=== PATIENT | female | born 1950 | race Caucasian/White ===

== ENCOUNTER 2016-09-15 14:07 | Emergency (ER) | payer OTHER ==
[2016-09-15 14:17] VITALS: RESP 16
[2016-09-15] MEDS ORDERED: FLUORESCEIN SODIUM 1 MG STRIP OP ONE (14:43)
[2016-09-15] MEDS ORDERED: PROPARACAINE 0.5% 15 ML OPHT DROP ONE (14:44)
--- NOTE | 2016-09-15 15:04 | EDPHY ---
H & P Time Seen by Provider: 09/15/16 14:48 HPI/ROS: CHIEF COMPLAINT: Left eye pain HISTORY OF PRESENT ILLNESS: This is a 66-year-old female presenting to the emergency department complaining left eye pain onset this morning. Patient states she was taking off her eyelashes when eye lash and piece of glue landed in her left eye. Patient states she did rubber eye after the incident and since then has been irritated with the feeling of something is in her eye. Denies any blurred vision or headache REVIEW OF SYSTEMS: Constitutional: No fever, no chills. Eyes: No discharge. No blurred vision. Left eye irritation ENT: No sore throat. Cardiovascular: No chest pain, no palpitations. Respiratory: No cough, no shortness of breath. Gastrointestinal: No abdominal pain, no vomiting. Musculoskeletal: No back pain. Skin: No rashes. Neurological: No headache. Smoking Status: Never smoked Physical Exam: General Appearance: Alert and no distress. Eyes: Pupils equal and round left conjunctival redness Respiratory: Chest is nontender, lungs are clear to auscultation. Cardiac: regular rate and rhythm Musculoskeletal: Neck is supple and nontender. Extremities have full range of motion and are nontender. Skin: No rashes or lesions. Constitutional: Initial Vital Signs Temperature (C) 37.2 C 09/15/16 14:14 Heart Rate 67 09/15/16 14:14 Respiratory Rate 16 09/15/16 14:14 Blood Pressure 125/78 H 09/15/16 14:14 O2 Sat (%) 94 09/15/16 14:14 O2 Delivery Mode Room Air Allergies/Adverse Reactions: No Known Allergies Allergy (Unverified 09/15/16 14:17) Home Medications: Medication Instructions Recorded Erythromycin 0.5% 3.5 gm OP Q4HRS WHILE AWAKE #2 09/15/16 opht.oint Medical Decision Making Procedures: Procedure: Fluorescein/slit lamp exam : left eye Anesthesia: Topical. After verbal consent from the patient. There was a corneal abrasion horizontal noted to left eye. No foreign body noted, upper eyelid flipped no foreign body seen. There were no complications and the patient tolerated the procedure well. The procedure was performed by myself. ED Course/Re-evaluation: Discussed ED plan of care: Fluorescein and slit lamp exam left eye 1505: Corneal abrasion noted to left eye, no foreign body noted, upper eyelid flipped no foreign body seen and upper lid. Differential Diagnosis: Other differential diagnosis considered but not limited to corneal laceration, corneal foreign body and bacteria conjunctivitis Departure - Departure Disposition: Home, Routine, Self-Care Clinical Impression: Corneal abrasion, left Qualifiers: Encounter type: initial encounter Qualified Code(s): S05.02XA - Injury of conjunctiva and corneal abrasion without foreign body, left eye, initial encounter Condition: Good Instructions: Corneal Abrasion (ED) Additional Instructions: Discussed discharge instruction 1. Use medication as prescribed. I would also recommend wearing sunglasses because dry will be sensitive to the light. Decrease any visual stimulation 2. Do not rub dry. I would also recommend not wearing your eye lashes for the next 7-10 days to prevent any further incident 3. He can also take ibuprofen 600 mg every 6-8 hours as needed for pain, and/ or Tylenol 4. Recommend following up with Ophthalmology in 7-10 days Referrals: Dusty Mast MD [Primary Care Provider] - As per Instructions Prescriptions: Erythromycin 0.5% 3.5 gm OP Q4HRS WHILE AWAKE #2 opht.oint
[2016-09-15 15:15] VITALS: BP 119/60; PULSE 71; TEMP 98.6; O2SAT 98
== END 2016-09-15 15:23 | disposition home or self-care (01) ==
DX: S05.02XA Injury of conjunctiva and corneal abrasion without foreign body, left eye, initial encounter (principal); X58.XXXA Exposure to other specified factors, initial encounter

== ENCOUNTER 2016-12-10 21:12 | Emergency (ER) | payer OTHER ==
[2016-12-10 21:34] VITALS: RESP 16; TEMP 98.4
--- NOTE | 2016-12-10 22:28 | EDPHY ---
H & P Stated Complaint: Pt fell ([facility] Fall) striking her head and side of face. No LOC. HPI/ROS: HPI CHIEF COMPLAINT: Mechanical trip and fall right posterior rib pain, left facial pain HISTORY OF PRESENT ILLNESS: This patient is 66-year-old female otherwise healthy does not take any daily medications and is not on any blood thinners, she presents to the emergency room after she took a mechanical trip and fall out of the back of a [employer] truck. She states she fell approximately 2 feet she landed on the ground. She mainly impacted her left side. She pain of left facial pain, and left-sided headache, additionally she complains right posterior rib pain. Does have some abrasions on her left lower leg but denies any significant pain. Tetanus shot is up-to-date. Denies LOC. Denies neck pain, denies chest pain or shortness of breath. Denies abdominal pain. Past Medical History: No medical history except for breast cancer Past Surgical History: Bilateral mastectomy Social History: Denies daily use drugs alcohol tobacco products Family History: Noncontributory ROS REVIEW OF SYSTEMS: A comprehensive 10 point review of systems is otherwise negative aside from elements mentioned in the history of present illness. Exam Constitutional appears well nontoxic triage nursing summary reviewed, vital signs reviewed, awake/alert. Eyes normal conjunctivae and sclera, EOMI, PERRLA. HENT Head/Neck: Atraumatic head and neck exam however patient complains of left -sided forehead pain. No hematoma. No scalp laceration. No midline cervical spine pain no step-offs. normal inspection, atraumatic, moist mucus membranes, no epistaxis, neck supple/ no meningismus, no raccoon eyes. Respiratory clear to auscultation bilaterally, normal breath sounds, no respiratory distress, no wheezing. Cardiovascular rate normal, regular rhythm, no murmur, no edema, distal pulses normal. Gastrointestinal soft, non-tender, no rebound, no guarding, normal bowel sounds, no distension, no pulsatile mass. Genitourinary no CVA tenderness. Musculoskeletal no midline vertebral tenderness, full range of motion, no calf swelling, no tenderness of extremities, no meningismus, good pulses, neurovascularly intact. Skin abrasion left lower extremity anterior tibia region, ankle region, no laceration, pink, warm, & dry, no rash Neurologic awake, alert and oriented x 3, AAOx3, moves all 4 extremities equally, motor intact, sensory intact, CN II-XII intact, normal cerebellar, normal vision, normal speech. Psychiatric normal mood/affect. Heme/Lymph/Immune no lymphadenopathy. Differential Diagnosis: Includes but is not limited to in a particular order closed-head injury, intracranial bleed, skull fracture, concussion, subdural, epidural, traumatic subarachnoid, rib fractures, pneumothorax Medical Decision Making: Plan for this patient CT head without contrast for trauma, chest x-ray with rib series right-sided for trauma. [place] for pain control. Re-evaluate. Re-evaluation: CT scan of the head without IV contrast. The results of the study are negative for acute intracranial abnormality The study was read by Dr. Arzola I viewed the images myself on the PACS system. X-ray and CT scan reviewed. No acute rib fracture or pneumothorax. CT head does not show anything acute. Blood work is reviewed is normal. She feels better [place]. She will be discharged from the emergency room if she has no significant intracranial trauma. It is possible she has close head injury concussion. Source: Patient - Personal History Current Tetanus/Diphtheria Vaccine: Unsure Current Tetanus Diphtheria and Acellular Pertussis (TDAP): Unsure - Medical/Surgical History Hx Asthma: No Hx Chronic Respiratory Disease: No Hx Diabetes: No Hx Cardiac Disease: No Hx Renal Disease: No Hx Cirrhosis: No Hx Alcoholism: No Hx HIV/AIDS: No Hx Splenectomy or Spleen Trauma: No Other PMH: PMH:breast CA, polio. PSH:none - Social History Smoking Status: Never smoked Constitutional: Initial Vital Signs Temperature (C) 36.9 C 12/10/16 21:29 Heart Rate 65 12/10/16 21:29 Respiratory Rate 16 12/10/16 21:29 Blood Pressure 131/54 H 12/10/16 21:29 O2 Sat (%) 94 12/10/16 21:29 O2 Delivery Mode Room Air Allergies/Adverse Reactions: No Known Allergies Allergy (Verified 12/10/16 21:34) Medical Decision Making - Diagnostics Imaging Results: Imaging Impressions Head CT 12/10/16 22:33 Impression: Normal. Results called and discussed with Alberto Monet MD at 12/10/2016 23:05. Ribs w/Chest X-Ray 12/10/16 22:33 Impression: 1. No evidence for acute cardiopulmonary abnormality. 2. No evidence for right rib fracture. - Data Points Laboratory Results: Laboratory Results 12/10/16 23:00 12/10/16 23:00 12/10/16 12/10/16 23:00 23:00 WBC 7.93 10^3/uL 10^3/uL (3.80-9.50) RBC 4.60 10^6/uL 10^6/uL (4.18-5.33) Hgb 14.2 g/dL g/dL (12.6-16.3) Hct 42.6 % % (38.0-47.0) MCV 92.6 fL fL (81.5-99.8) MCH 30.9 pg pg (27.9-34.1) MCHC 33.3 g/dL g/dL (32.4-36.7) RDW 12.6 % % (11.5-15.2) Plt Count 253 10^3/uL 10^3/uL (150-400) MPV 9.2 fL fL (8.7-11.7) Neut % (Auto) 65.1 % % (39.3-74.2) Lymph % (Auto) 25.2 % % (15.0-45.0) [place] % (Auto) 7.2 % % (4.5-13.0) Eos % (Auto) 1.5 % % (0.6-7.6) Baso % (Auto) 0.9 % % (0.3-1.7) Nucleat RBC Rel Count 0.0 % % (0.0-0.2) Absolute Neuts (auto) 5.16 10^3/uL 10^3/uL (1.70-6.50) Absolute Lymphs (auto) 2.00 10^3/uL 10^3/uL (1.00-3.00) Absolute Monos (auto) 0.57 10^3/uL 10^3/uL (0.30-0.80) Absolute Eos (auto) 0.12 10^3/uL 10^3/uL (0.03-0.40) Absolute Basos (auto) 0.07 10^3/uL 10^3/uL (0.02-0.10) Absolute Nucleated RBC 0.00 10^3/uL 10^3/uL (0-0.01) Immature Gran % 0.1 % % (0.0-1.1) Immature Gran # 0.01 10^3/uL 10^3/uL (0.00-0.10) Sodium 139 mEq/L mEq/L (134-144) Potassium 4.5 mEq/L mEq/L (3.5-5.2) Chloride 102 mEq/L mEq/L (97-110) Carbon Dioxide 27 mEq/l mEq/l (22-31) Anion Gap 10 mEq/L mEq/L (8-16) BUN 27 mg/dL H mg/dL (7-23) Creatinine 0.8 mg/dL mg/dL (0.6-1.0) Estimated GFR > 60 Glucose 110 mg/dL H mg/dL (70-100) Calcium 9.8 mg/dL mg/dL (8.5-10.4) Medications Given: Discontinued Medications Hydrocodone Bitart/Acetaminophen ([place] 5/325) 1 tab PO EDNOW ONE Stop: 12/10/16 22:37 Last Admin: 12/10/16 23:08 Dose: 1 tab Departure - Departure Disposition: Home, Routine, Self-Care Clinical Impression: Head injury Qualifiers: Encounter type: initial encounter Qualified Code(s): S09.90XA - Unspecified injury of head, initial encounter Concussion Qualifiers: Encounter type: initial encounter Loss of consciousness presence/duration: without LOC Qualified Code(s): S06.0X0A - Concussion without loss of consciousness, initial encounter Condition: Good Instructions: Concussion (ED), Head Injury (ED) Additional Instructions: 1. Return emergency room if you have any worsening symptoms questions or concerns. Referrals: Dusty Mast MD [Primary Care Provider] - As per Instructions
[2016-12-10] MEDS ORDERED: HYDROCODONE/APAP 5/325 TAB PO ONE (22:36)
[2016-12-10 23:13] LABS: % IMMATURE GRANULYOCYTES 0.1 % (0.0-1.1); ABSOLUTE IMMATURE GRANULOCYTES 0.01 10^3/uL (0.00-0.10); ADD DIFF? NO; ADD MORPH? NO; ADD SCAN? NO; ATYPICAL LYMPHOCYTE FLAG 10 (0-99); FRAGMENT RBC FLAG 0 (0-99); HEMATOCRIT 42.6 % (38.0-47.0); HEMOGLOBIN 14.2 g/dL (12.6-16.3); LEFT SHIFT FLG 0 (0-99); LIPEMIA HEMOLYSIS FLAG 80 (0-99); MEAN CELL HEMOGLOBIN 30.9 pg (27.9-34.1); MEAN CELL HEMOGLOBIN CONCENTR. 33.3 g/dL (32.4-36.7); MEAN CELL VOLUME 92.6 fL (81.5-99.8); MEAN PLATELET VOLUME 9.2 fL (8.7-11.7); PLATELET CLUMPS FLAG 40 (0-99); PLATELET COUNT 253 10^3/uL (150-400); RED CELL DISTRIBUTION WIDTH 12.6 % (11.5-15.2)
[2016-12-10 23:25] LABS: ANION GAP 10 mEq/L (8-16); CALCIUM 9.8 mg/dL (8.5-10.4); CARBON DIOXIDE 27 mEq/l (22-31); CHLORIDE 102 mEq/L (97-110); CREATININE 0.8 mg/dL (0.6-1.0); GLOMERULAR FILTRATION RATE > 60; GLUCOSE 110 mg/dL (70-100); POTASSIUM 4.5 mEq/L (3.5-5.2); SODIUM 139 mEq/L (134-144)
[2016-12-10 23:51] VITALS: BP 135/77; PULSE 70; O2SAT 96
== END 2016-12-10 23:50 | disposition home or self-care (01) ==
DX: S06.0X0A Concussion without loss of consciousness, initial encounter (principal); Z85.3 Personal history of malignant neoplasm of breast; W01.0XXA Fall on same level from slipping, tripping and stumbling without subsequent striking against object, initial encounter

== ENCOUNTER → 2018-04-24 | Outpatient (CLI) | payer OTHER | LOC: FIMAGING 14:47 | PROVIDERS: ATTEND Physician Assistant | DX: R22.2 Localized swelling, mass and lump, trunk (principal); Z90.13 Acquired absence of bilateral breasts and nipples; Z85.3 Personal history of malignant neoplasm of breast ==

== ENCOUNTER → 2018-07-09 | Outpatient (CLI) | payer OTHER ==
[~2018-07-09] MED LIST: BUPIVACAINE 0.5% 30 ML SDV ONE; LIDOCAINE 1% 300 MG/30 ML SDV ONE
== END ==
LOC: FIMAGING 07:22
PROVIDERS: ATTEND Physician Assistant
PROC: 0HBT3ZX Excision of Right Breast, Percutaneous Approach, Diagnostic (ICD-10-PCS; principal; 2018-07-09)
DX: N60.01 Solitary cyst of right breast (principal)

== ENCOUNTER 2018-08-08 05:48 | Observation (INO) | payer OTHER ==
[2018-08-08] MEDS ORDERED: ceFAZolin 2 GM/DEXTROSE 100 ML IV ONE (06:03)
[2018-08-08] MEDS ORDERED: LIDOCAINE 1% 2 ML INJ ONE (06:35)
[2018-08-08] MEDS ORDERED: LR 1,000 ML IV ONE (06:46)
[2018-08-08] MEDS ORDERED: LIDOCAINE 1% 2 ML INJ ID PRN (06:46)
[2018-08-08] MEDS ORDERED: LIDOCAINE 1% 300 MG/30 ML SDV ONE (06:50)
[2018-08-08] MEDS ORDERED: NA BICARBONATE 50 MEQ/50 ML VIAL ONE (06:50)
[2018-08-08] MEDS ORDERED: BUPIVACAINE 0.5% 30 ML SDV ONE (06:50)
[2018-08-08] MEDS ORDERED: THROMBIN (BOVINE) 5,000 UNIT VIAL TP ONE (06:50)
[2018-08-08] MEDS ORDERED: MIDAZOLAM 2 MG/2 ML VIAL IVP ONE (07:02)
--- NOTE | 2018-08-08 07:03 | PDANEPAE ---
ANE History of Present Illness excisional breast biopsy ANE Past Medical History - Cardiovascular History Hx Hypertension: No Hx Arrhythmias: No Hx Chest Pain: No Hx Coronary Artery / Peripheral Vascular Disease: No Hx CHF / Valvular Disease: No Hx Palpitations: No - Pulmonary History Hx COPD: No Hx Asthma/Reactive Airway Disease: No Hx Recent Upper Respiratory Infection: No Hx Oxygen in Use at Home: No Hx Sleep Apnea: No Sleep Apnea Screening Result - Last Documented: Negative - Neurologic History Hx Cerebrovascular Accident: No Hx Seizures: No Hx Dementia: No Neurologic History Comment: polio as a child - Endocrine History Hx Diabetes: No - Renal History Hx Renal Disorders: No - Liver History Hx Hepatic Disorders: No - Neurological & Psychiatric Hx Hx Neurological and Psychiatric Disorders: Yes Neurological / Psychiatric History Comment: anxiety - Cancer History Hx Cancer: Yes Cancer History Comment: breast ca - Congenital Disorder History Hx Congenital Disorders: No - GI History Hx Gastrointestinal Disorders: No Gastrointestinal History Comment: polyp removed - Other Health History Other Health History: neg - Chronic Pain History Chronic Pain: Yes - Surgical History Prior Surgeries: roger mastectomy. colonoscopy ANE Review of Systems Review of Systems: - Exercise capacity METS (RN): 5 METS ANE Patient History - Allergies Allergies/Adverse Reactions: acetaminophen [From Percocet] Allergy (Verified 08/08/18 06:59) hallucinatory oxycodone [From Percocet] Allergy (Verified 08/08/18 06:59) hallucinatory - Home Medications Home medications: home medication list seen and reviewed Home Medications: Herbals/Supplements -Info Only 08/04/18 [Last Taken Unknown] Lorazepam 08/04/18 [Last Taken Unknown] - NPO status NPO Since - Liquids (Date): 08/07/18 NPO Since - Liquids (Time): 19:00 NPO Since - Solids (Date): 08/07/18 NPO Since - Solids (Time): 19:00 - Anes Hx Anes Hx: no prior problems - Smoking Hx Smoking Status: Never smoked - Family Anes Hx Family Hx Anesthesia Complications: neg ANE Labs/Vital Signs - Vital Signs Blood Pressure: 124/72 Heart Rate: 54 Respiratory Rate: 16 O2 Sat (%): 97 Height: 180.34 cm Weight: 66.224 kg ANE Physical Exam - Airway Neck exam: FROM Mallampati Score: Class 1 Mouth exam: normal dental/mouth exam - Pulmonary Pulmonary: no respiratory distress - Cardiovascular Cardiovascular: regular rate and rhythym - ASA Status ASA Status: II ANE Anesthesia Plan Anesthesia Plan: GA with mask
[2018-08-08] MEDS ORDERED: MIDAZOLAM 2 MG/2 ML VIAL ONE (07:05)
--- NOTE | 2018-08-08 07:05 | PDHPUP ---
History & Physical Update H&P update statement: This history and physical update is based on an assessment of the patient which was completed after admission or registration (within 24 hours), but prior to the surgery/procedure. H&P update: H&P reviewed & patient examined, no change in patient's condition since H&P completed
[2018-08-08] MEDS ORDERED: PROPOFOL/EMULSION 500 MG/50 ML BOTTLE IV ONE (07:08)
[2018-08-08] MEDS ORDERED: fentaNYL 100 MCG/2 ML INJ ONE ×2 (07:08→08:22)
[2018-08-08] MEDS ORDERED: LIDOCAINE 2% 2 ML INJ ONE (07:13)
[2018-08-08] MEDS ORDERED: PROMETHAZINE HCL 25 MG/ML INJ IVP PRN (07:37)
[2018-08-08] MEDS ORDERED: NALOXONE HCL 0.4 MG/ML INJ IVP PRN ×2 (07:37→09:04)
[2018-08-08] MEDS ORDERED: ONDANSETRON 4 MG/2 ML VIAL IVP PRN (07:37)
[2018-08-08] MEDS ORDERED: HYDROCODONE/APAP 5/325 TAB PO PRN (07:37)
[2018-08-08] MEDS ORDERED: DIAZEPAM 10 MG/2 ML SYR IVP PRN (07:37)
[2018-08-08] MEDS ORDERED: LR 500 ML IV PRN (07:37)
--- NOTE | 2018-08-08 07:37 | POSTANESTH ---
Post Anesthetic Evaluation Cardiovascular Status: Normal, Stable Respiratory Status: Normal, Stable Level of Consciousness/Mental Status: Can Participate in Eval, Mildly Sleepy, Arousable Pain Control: Adequate, Prn Tx Ordered Nausea/Vomiting Control: Adequate, Prn Tx Ordered Complications Possibly Related to Anesthesia: None Noted
[2018-08-08] MEDS ORDERED: IBUPROFEN 200 MG TAB PO PRN (08:02)
[2018-08-08] MEDS ORDERED: HYDROmorphONE/DILAUDID 1 MG/ML INJ IVP PRN (08:03)
[2018-08-08] MEDS ORDERED: traMADol 50 MG TAB PO PRN (08:03)
--- NOTE | 2018-08-08 08:03 | POSTOPPROG ---
Post Op Note Date of Operation: 08/08/18 Surgeon: Demetrio Garcia Anesthesiologist: nj Anesthesia: IV Sedation Pre-op Diagnosis: rt breast mass Post-op Diagnosis: sebaceous cyst Indication: pain Procedure: excisional right partial mastectomy Findings: 4 cm sebaceous cyst upper lateral rt breast Inf/Abcess present in the surg proc area at time of surgery?: Yes Depth: Deep Incisional (Fascial) EBL: Minimal Complications: 0 Bowel Protocol: N/A Clean Closure Performed: N/A Drains: Jacob Markham Specimen(s): mass
[2018-08-08] MEDS ORDERED: ONDANSETRON DISINTEGRATING 4 MG TAB PO PRN (08:04)
[2018-08-08] MEDS: fentaNYL 100 MCG/2 ML INJ IVP PRN ×2 (08:26→08:34)
[2018-08-08] MEDS ORDERED: HYDROmorphONE/DILAUDID 1 MG/ML INJ ONE ×2 (08:43→08:46)
[2018-08-08] MEDS: HYDROmorphONE/DILAUDID 1 MG/ML INJ IVP PRN ×2 (08:46→09:03)
--- NOTE | 2018-08-08 10:18 | POSTOPPROG ---
Post Op Note Date of Operation: 08/08/18 Surgeon: Demetrio Garcia Mortgage Collector: Usama Anesthesiologist: Stephan Anesthesia: IV Sedation Pre-op Diagnosis: R breast mass Post-op Diagnosis: R breast sebaceous cyst Indication: same Procedure: R breast sebaceous cyst excision Findings: 3x3cm cyst Inf/Abcess present in the surg proc area at time of surgery?: No Depth: Superfical (Skin SQ) EBL: Minimal Bowel Protocol: N/A Clean Closure Performed: N/A Drains: Jacob Markham Specimen(s): Right breast mass- permanent
[2018-08-08] MEDS ORDERED: LORazepam 1 MG TAB PO PRN (11:11)
[2018-08-08] MEDS: ESCITALOPRAM OXALATE 10 MG TAB PO SCH (11:45)
[2018-08-08] MEDS: LORazepam 1 MG TAB PO SCH (11:46)
[2018-08-09] MEDS: LORazepam 1 MG TAB PO SCH (05:32)
[2018-08-09] MEDS: ESCITALOPRAM OXALATE 10 MG TAB PO SCH (05:32)
--- NOTE | 2018-08-09 10:19 | ASMTCMCOM ---
CM Note CM Note Notes: Reviewed chart, pt admitted for scheduled surgery for a R breast mass, does not appear to be cancerous. No therapies ordered. Pt lives alone and is retired, anticipate she will dc home when medically stable. CM available for any changes. DC Plan: Indepnedent Date Signed: 08/09/2018 10:18 AM Electronically Signed By:Anabel Bennett RN
[2018-08-09 11:27] VITALS: BP 108/62
--- NOTE | 2018-08-09 13:04 | SOAPPROG ---
SOAP Progress Note Assessment/Plan: Assessment: DOING WELL/COMFORTABLE/AFEBRILE/MINIMAL DRAINAGE/WOUND OKAY Plan: HOME TODAY 08/09/18 13:04 Objective: Vital Signs Temp Pulse Resp BP Pulse Ox 36.8 C 56 L 16 108/62 92 08/09/18 11:25 08/09/18 11:25 08/09/18 11:25 08/09/18 11:25 08/09/18 11:25 08/08/18 08/09/18 08/10/18 05:59 05:59 05:59 Intake Total 1530 Output Total 955 Balance 575 ICD10 Worksheet Patient Problems: Problems Problem Status Onset Breast mass, right Acute - ICD10 Problem Qualifiers (1) Breast mass, right
--- NOTE | 2018-08-11 03:54 | GOP ---
[f rep st] OPERATIVE REPORT DATE OF OPERATION: 08/08/2018 SURGEON: Dmeetrio Garcia MD PREOPERATIVE DIAGNOSIS: Right breast mass. POSTOPERATIVE DIAGNOSIS: Right breast sebaceous cyst. PROCEDURE PERFORMED: Ultrasound localization of right breast, partial mastectomy. FINDINGS: 5 CM SEBACEOUS CYST DESCRIPTION OF PROCEDURE: The patient was taken to the operating room where she received a satisfactory general laryngeal mask anesthesia. She was placed in the supine position with the right arm outstretched on an arm board. Using ultrasound, the mass was clearly identified. A curvilinear incision was made over the mass. Dissection extended down through subcutaneous tissue and down to the palpable mass. This was dissected free from surrounding subcutaneous tissue off the pectoral fascia and from surrounding breast tissue which was actually TRAM flap tissue. Hemostasis was carefully obtained. The mass was removed. It appeared to be a sebaceous cyst. The wound was irrigated and flushed with some Betadine and then breast tissue was approximated with 3-0 Vicryl as was the subcu, and the skin with a 4-0 Monocryl subcuticular stitch. She tolerated the procedure well. There were no complications. She was taken to the recovery room in good condition. /[id number]/MODL MTDD
== END 2018-08-09 13:41 | disposition home or self-care (01) ==
LOC: FSGY 05:48 → F3E 08:01 → F1N 09:23
PROVIDERS: ADMIT Nurse Practitioner Family; ATTEND Surgery
PROC: 0HBT0ZZ Excision of Right Breast, Open Approach (ICD-10-PCS; principal; 2018-08-08 07:15)
PROC: BH40ZZZ Ultrasonography of Right Breast (ICD-10-PCS; principal; 2018-08-08 07:15)
DX: N60.81 Other benign mammary dysplasias of right breast (principal); F41.9 Anxiety disorder, unspecified; Z85.3 Personal history of malignant neoplasm of breast
CPT/HCPCS: 19301; G0378; J0690; J1170; J2250; J2704; J3010